=== PATIENT | female | born 1990 | race African-American/Black ===

== ENCOUNTER → 2016-11-08 | Outpatient (CLI) | payer OTHER ==
[2016-02-20 17:35] VITALS: BP 112/60
[~2016-11-08] MED LIST: NS 100 ML IV 100 ML IV ONE
--- NOTE | 2016-11-08 10:39 | CT ---
HISTORY: Abdominal pain and distention Study: CT abdomen and pelvis with IV and oral contrast Comparison: None Technique: Multiple axial images of the abdomen and pelvis were obtained from the lung bases to the pubic symph ysis with the administration of IV contrast. Sagittal and coronal reformations were provided. Findings: The visualized portions of the lung bases are unremarkable. The liver, spleen, pancreas, kidneys, a nd adrenal glands are unremarkable in their CT appearance. The gallbladder is unremarkable in its CT appearance. No significant mesenteric lymphadenopathy or stranding can be observed. No free fluid or free air is seen within the abdomen. The appendix is normal. The uterus is normal in size . The re is no abnormal adnexal mass. No bowel wall thickening or bowel dilatation is present. The colon is unremarkable. Specifically, there is no diverticulosis noted within the sigmoid colon. The urina ry bladder is grossly unremarkable. The bony structures are grossly intact. IMPRESSION: 1. Negative CT of the abdomen and pelvis. Reported By:
== END ==
LOC: RAD 08:32
PROVIDERS: ATTEND Physician Assistant Medical
DX: R14.0 Abdominal distension (gaseous) (principal)
CPT/HCPCS: 74177; A4222

== ENCOUNTER 2022-08-10 13:05 | Observation (INO) ==
--- NOTE | 2022-08-10 13:29 | DR.GENAD ---
HPI Time Seen Time Seen by Provider: 08/10/22 13:29 PCP Primary Care Physician: RACHAEL Complaint/Symptoms Chief Complaint:: PT. C/O SEVERE HEADACHE X 6 DAYS. PT. C/O RASH TO BODY. PT. WAS SEEN IN THE ER HERE AND WAS TOLD THERE WAS AN ABNORMAILTY ON HER SCAN AND ALSO IN [place] WHERE THEY STATED HER CT WAS NORMAL. PT. WAS SEEN AT THE ER IN [place] ON 08/08/22. Self Treatment fo Chief Complaint: TORADOL COVID-19 Coronavirus risk:travel/contact w/high risk person: No Has patient experienced Coronavirus symptoms: No Source History Provided: Patient Mode of Arrival Mode of Arrival: Ambulatory Timing Onset of Chief Complaint: 08/04/22 PMH PMH Past Medical History: No Past Surgical History: Yes Surgical History: and Tonsillectomy Family History History of Family Medical Conditions: Yes Family Medical History: Diabetes Mellitus and Hypertension Social History Does patient currently use any type of tobacco product: Yes Have you used tobacco products in the last 12 months: Yes Type of Tobacco Use: Cigarettes Does any household member use tobacco: No Alcohol Use: None Do you use any recreational Drugs:: No Lives With: Family Lives Where: Home Travel Risk Coronavirus risk:travel/contact w/high risk person: No Has patient experienced Coronavirus symptoms: No Infectious screening In the last 2 months have you had wt loss of >10#?: NO Have you had fever, night sweats or hemotysis?: No Have you traveled outside the country in the last 6 months?: No Isolation: Standard PE Vital Signs Vitals: Temperature 99.2 F Pulse Rate 95 Respiratory Rate 20 Blood Pressure [Left Arm] 115/59 Blood Pressure 102/67 O2 Sat by Pulse Oximetry 99 ROR Labs Reviewed Result Diagrams: 08/10/22 18:20 08/10/22 18:20 Laboratory: WBC 10.3 X10^3/uL (3.6-10.0) H 08/10/22 18:20 RBC 3.99 X10^6/uL (3.5-5.4) 08/10/22 18:20 Hgb 8.7 g/dL (12.0-16.0) L 08/10/22 18:20 Hct 27.3 % (36.0-47.0) L 08/10/22 18:20 MCV 68.4 fL (80.0-100.0) L 08/10/22 18:20 MCH 21.9 pg (27.0-34.0) L 08/10/22 18:20 MCHC 31.9 g/dL (33.0-35.0) L 08/10/22 18:20 RDW 20.3 % (11.6-16.5) H 08/10/22 18:20 Plt Count 417 X10^3/uL (150.0-450.0) 08/10/22 18:20 Plt Count Comment Adequate (ADEQUATE) 08/10/22 18:20 MPV 7.7 fL (7.4-11.0) 08/10/22 18:20 Neut % (Auto) 72.8 % (42.0-75.0) 08/10/22 18:20 Lymph % (Auto) 18.6 % (21.0-51.0) L 08/10/22 18:20 Sharp % (Auto) 6.9 % (0.0-13.0) 08/10/22 18:20 Eos % (Auto) 0.7 % (0.9-2.9) L 08/10/22 18:20 Baso % (Auto) 1.0 % (0.2-1.0) 08/10/22 18:20 Neut # (Auto) 7.5 x10^3/uL (2.2-4.8) H 08/10/22 18:20 Lymph # (Auto) 1.9 X10^3/uL (1.3-2.9) 08/10/22 18:20 Sharp # (Auto) 0.7 x10^3/uL (0.3-0.8) 08/10/22 18:20 Eos # (Auto) 0.1 x10^3/uL (0.0-0.2) 08/10/22 18:20 Baso # (Auto) 0.1 X10^3/uL (0.0-0.1) 08/10/22 18:20 Absolute Nucleated RBC 0.0 /100WBC 08/10/22 18:20 Plt Morphology Comment Normal (NORMAL) 08/10/22 18:20 RBC Morphology Abnormal (NORMAL) A 08/10/22 18:20 Anisocytosis 1+ A 08/10/22 18:20 Microcytosis 1+ A 08/10/22 18:20 Target Cells Present 08/10/22 18:20 ESR 130 MM/HOUR (0-20) H 08/10/22 18:20 Clot Appearance Negative 08/10/22 22:43 Sodium 135 mmol/L (136-145) L 08/10/22 18:20 Corrected Sodium TNP 08/10/22 18:20 Potassium 3.8 mmol/L (3.5-5.1) 08/10/22 18:20 Chloride 98 mmol/L (98-107) 08/10/22 18:20 Carbon Dioxide 30.7 mmol/L (21-32) 08/10/22 18:20 BUN 5 mg/dL (7-18) L 08/10/22 18:20 Creatinine 0.79 mg/dL (0.55-1.02) 08/10/22 18:20 Est GFR (MDRD) Af Amer > 60 (>60) 08/10/22 18:20 Est GFR (MDRD) Non-Af > 60 (>60) 08/10/22 18:20 Glucose 102 mg/dL (65-99) H 08/10/22 18:20 Calcium 8.6 mg/dL (8.5-10.1) 08/10/22 18:20 Corrected Calcium 10.0 mg/dL (8.5-10.1) 08/10/22 18:20 Iron 9 ug/dL (50-175) L 08/10/22 18:20 Transferrin 176 mg/dL (202-364) L 08/10/22 18:20 Ferritin 107 ng/mL (8-252) 08/10/22 18:20 Total Bilirubin 0.30 mg/dL (0.2-1.0) 08/10/22 18:20 AST 16 Units/L (15-37) 08/10/22 18:20 ALT 24 Units/L (12-78) 08/10/22 18:20 Alkaline Phosphatase 160 Units/L (46-116) H 08/10/22 18:20 C-Reactive Protein 150.10 mg/L (0-3.0) H 08/10/22 18:20 Total Protein 8.4 g/dL (6.4-8.2) H 08/10/22 18:20 Albumin 2.3 g/dL (3.4-5.0) L 08/10/22 18:20 Globulin 6.1 g/dL (2.5-4.5) H 08/10/22 18:20 Albumin/Globulin Ratio 0.4 Ratio (1.1-2.1) L 08/10/22 18:20 Vitamin B12 561 pg/mL (193-986) 08/10/22 18:20 Folate 14.7 ng/mL (>8.6) 08/10/22 18:20 CSF Appearance Clear 08/10/22 22:43 CSF Color Colorless 08/10/22 22:43 CSF WBC 3 Cubic mm 08/10/22 22:43 CSF RBC 113 Cubic mm 08/10/22 22:43 CSF Glucose 62 mg/dl (40-75) 08/10/22 22:43 CSF Total Protein 23.2 mg/dL (15-45) 08/10/22 22:43 Pleural Fluid Volume 6 mL 08/10/22 22:43 Opioid Opioid Risk Tool Age (Krunal box if 16-45): Yes History of Preadolescent Sexual Abuse: No Total: 1 Total Score Risk Category: Low Risk Copyright: [place] LEVINE predicting aberrant behaviors Discharge Plan Diagnosis Discharge Problem: Headache, Rash Discharge Plan Patient Disposition: 09 ADMITTED INPATIENT Condition: Stable Discharge Comment: RETURN TO ER IF WORSE. Orders to Discharge Patient Discharge Orders: Discharge (Routine); Ordered 08/10/22 Ordered By: MIR LEONARDO Transfer (Routine); Ordered 08/11/22 Ordered By: MIR LEONARDO
[2022-08-10] MEDS ORDERED: MORPHINE SULFATE INJ 4 MG ONE (13:46)
[2022-08-10] MEDS ORDERED: ZOFRAN INJ 4 MG VIAL ONE (13:46)
[2022-08-10] MEDS ORDERED: MORPHINE SULFATE INJ 4 MG IVP ONE (13:54)
[2022-08-10] MEDS ORDERED: ZOFRAN INJ 4 MG VIAL IVP ONE (13:54)
--- NOTE | 2022-08-10 15:09 | MRI ---
HISTORYSEVERE JOHNSNO, RASHSTUDYBRAIN W W/O CONCOMPARISONNone available.TECHNIQUEMRI images of the brain were obtained prior to and after the administration of intravenous contrast (18 mL MultiHance) utilizing a routine protocol.FINDINGSNo abnormal enhancement.No abnormal signal in the dural sinuses on the sagittal T1 sequence.Pituitary gland and stalk appear normal.No mass effect on the optic chiasm.No Chiari 1 malformation.Imaged portion of the spine and spinal cord appear grossly normal.No restricted diffusion.Flow voids appear normal on the T2 sequence.No intracranial, extra-axial, fluid collection.No mass, mass effect or midline shift.No abnormal areas of acute T2 signal in the brain parenchyma.No blooming artifact in the brain parenchyma.Sinuses are well aeratedMastoid air cells are well aerated.Globes and intra-orbital contents appear normal.No ventriculomegaly.IMPRESSIONNo acute intracranial abnormality identified.Electronically signed by: Bereket Boone (Aug 10, 2022 15:07:53)
[2022-08-10] MEDS ORDERED: FIORICET TAB PO ONE ×4 (17:56→21:03)
[2022-08-10 18:32] LABS: ERYTHROCYTE SEDIMENTATION RATE 130 MM/HOUR (0-20)
[2022-08-10 18:33] LABS: WHITE BLOOD COUNT 10.3 X10^3/uL (3.6-10.0)
[2022-08-10 18:37] LABS: BASOPHILS # (AUTO) 0.1 X10^3/uL (0.0-0.1); EOSINOPHILS # (AUTO) 0.1 x10^3/uL (0.0-0.2); EOSINOPHILS % (AUTO) 0.7 % (0.9-2.9); HEMATOCRIT 27.3 % (36.0-47.0); HEMOGLOBIN 8.7 g/dL (12.0-16.0); LYMPHOCYTES # (AUTO) 1.9 X10^3/uL (1.3-2.9); LYMPHOCYTES % (AUTO) 18.6 % (21.0-51.0); MEAN CORPUSCULAR HEMOGLOBIN 21.9 pg (27.0-34.0); MEAN CORPUSCULAR HGB CONC 31.9 g/dL (33.0-35.0); MEAN CORPUSCULAR VOLUME 68.4 fL (80.0-100.0); MEAN PLATELET VOLUME 7.7 fL (7.4-11.0); MONOCYTES # (AUTO) 0.7 x10^3/uL (0.3-0.8); MONOCYTES % (AUTO) 6.9 % (0.0-13.0); NEUTROPHILS # (AUTO) 7.5 x10^3/uL (2.2-4.8); NEUTROPHILS % (AUTO) 72.8 % (42.0-75.0); RED BLOOD COUNT 3.99 X10^6/uL (3.5-5.4); RED CELL DISTRIBUTION WIDTH 20.3 % (11.6-16.5)
[2022-08-10 18:44] LABS: ANISOCYTOSIS 1+; MICROCYTOSIS 1+; PLATELET MORPHOLOGY COMMENT NORMAL (NORMAL)
[2022-08-10 18:45] LABS: TARGET CELLS PRESENT
[2022-08-10 18:47] LABS: ALANINE AMINOTRANSFERASE 24 Units/L (12-78); ALBUMIN 2.3 g/dL (3.4-5.0); ALKALINE PHOSPHATASE 160 Units/L (46-116); ASPARTATE AMINO TRANSFERASE 16 Units/L (15-37); BLOOD UREA NITROGEN 5 mg/dL (7-18); CALCIUM 8.6 mg/dL (8.5-10.1); CARBON DIOXIDE 30.7 mmol/L (21-32); CHLORIDE 98 mmol/L (98-107); CREATININE 0.79 mg/dL (0.55-1.02); SODIUM 135 mmol/L (136-145); TOTAL PROTEIN 8.4 g/dL (6.4-8.2); eGFR NON BLACK RACES > 60 (>60)
[2022-08-10] MEDS ORDERED: XYLOCAINE 2 % (PLAIN) ONE (22:19)
[2022-08-10] MEDS ORDERED: XYLOCAINE 2 % (PLAIN) IJ PRN (22:50)
[2022-08-10] MEDS ORDERED: ROCEPHIN VIAL 1 GRAM 2 G in NS 100 ML IV 100 ML IV ONE (22:54)
[2022-08-10] MEDS ORDERED: ROCEPHIN VIAL 1 GRAM ONE (23:07)
[2022-08-10] MEDS ORDERED: NS 100 ML IV 100 ML ONE (23:08)
[2022-08-10] MEDS ORDERED: ROCEPHIN VIAL 2 GRAMS ONE (23:09)
[2022-08-10 23:10] LABS: TOT VOL 6 mL
[2022-08-10 23:11] LABS: APPEARANCE,CSF CLEAR; COLOR,CSF COLORLESS
[2022-08-10 23:13] LABS: GLUCOSE,CSF 62 mg/dl (40-75); TOTAL PROTEIN,CSF 23.2 mg/dL (15-45)
[2022-08-10] MEDS ORDERED: TORADOL 30 MG VIAL IVP ONE (23:17)
[2022-08-10] MEDS ORDERED: TORADOL 30 MG VIAL ONE (23:19)
[2022-08-10 23:22] LABS: WHITE BLOOD CELL,CSF 3 Cubic mm
[2022-08-11] MEDS: NS 1,000 ML IV 1,000 ML IV SCH ×4 (01:55→20:33)
[2022-08-11 01:57] VITALS: BMI 22.9
[2022-08-11 06:04] LABS: BASOPHILS # (AUTO) 0.1 X10^3/uL (0.0-0.1); BASOPHILS % (AUTO) 2.1 % (0.2-1.0); EOSINOPHILS # (AUTO) 0.1 x10^3/uL (0.0-0.2); EOSINOPHILS % (AUTO) 2.6 % (0.9-2.9); HEMATOCRIT 25.3 % (36.0-47.0); HEMOGLOBIN 8.1 g/dL (12.0-16.0); LYMPHOCYTES % (AUTO) 37.5 % (21.0-51.0); MEAN CORPUSCULAR HEMOGLOBIN 21.9 pg (27.0-34.0); MEAN CORPUSCULAR HGB CONC 31.8 g/dL (33.0-35.0); MEAN CORPUSCULAR VOLUME 68.8 fL (80.0-100.0); MONOCYTES # (AUTO) 0.7 x10^3/uL (0.3-0.8); MONOCYTES % (AUTO) 12.7 % (0.0-13.0); NEUTROPHILS # (AUTO) 2.4 x10^3/uL (2.2-4.8); NEUTROPHILS % (AUTO) 45.1 % (42.0-75.0); RED BLOOD COUNT 3.68 X10^6/uL (3.5-5.4); WHITE BLOOD COUNT 5.3 X10^3/uL (3.6-10.0)
[2022-08-11 06:25] LABS: ALANINE AMINOTRANSFERASE 16 Units/L (12-78); ALBUMIN 1.9 g/dL (3.4-5.0); ALKALINE PHOSPHATASE 137 Units/L (46-116); ASPARTATE AMINO TRANSFERASE 11 Units/L (15-37); BLOOD UREA NITROGEN 8 mg/dL (7-18); CALCIUM 8.1 mg/dL (8.5-10.1); CHLORIDE 102 mmol/L (98-107); COR CA(FOR HYPOALB) 9.8 mg/dL (8.5-10.1); CREATININE 0.75 mg/dL (0.55-1.02); SODIUM 138 mmol/L (136-145); TOTAL PROTEIN 7.4 g/dL (6.4-8.2); eGFR NON BLACK RACES > 60 (>60)
[2022-08-11] MEDS ORDERED: MICRO K EXTEN CAP 10 MEQ PO PRN (06:33)
[2022-08-11] MEDS ORDERED: KLOR-CON PO PRN (06:33)
[2022-08-11] MEDS ORDERED: POTASSIUM CHL 60 MEQ/NS 0.45% 500 ML IV PRN (06:33)
[2022-08-11] MEDS ORDERED: K-RIDER 10 MEQ/NS 100 ML 10 MEQ/100 ML BAG IV PRN (06:33)
[2022-08-11] MEDS ORDERED: POTASSIUM CHLORIDE LIQ 20 MEQ UDC PO PRN (06:33)
[2022-08-11] MEDS ORDERED: MAGNESIUM SULFATE 1 GRAM/100 mL PREMIX 1 G/100 ML BAG IV PRN (06:33)
[2022-08-11] MEDS ORDERED: POTASSIUM CHL 40 MEQ/NS 0.45% 500 ML IV PRN (06:33)
[2022-08-11 06:35] LABS: MICROCYTOSIS 1+; PLATELET MORPHOLOGY COMMENT NORMAL (NORMAL)
[2022-08-11 06:36] LABS: ANISOCYTOSIS SLIGHT; TARGET CELLS SLIGHT
[2022-08-11 09:15] LABS: SERUM PREGNANCY TEST, QUAL NEGATIVE <10 mIU/mL
[2022-08-11] MEDS: ROCEPHIN VIAL 1 GRAM 1 G in NS 100 ML IV 100 ML IV SCH ×2 (09:28→11:13)
[2022-08-11] MEDS: K-DUR TAB 20 MEQ PO PRN (09:29)
[2022-08-11] MEDS: TORADOL 30 MG VIAL IVP PRN ×3 (09:29→23:17)
[2022-08-11] MEDS ORDERED: COMPAZINE IV PRN ×2 (10:42)
[2022-08-11] MEDS ORDERED: NS IV PRN ×2 (10:42)
[2022-08-11] MEDS: NYSTATIN SUSP MT SCH ×4 (11:15→20:33)
[2022-08-12] MEDS: NS 1,000 ML IV 1,000 ML IV SCH ×4 (01:59→17:15)
[2022-08-12 06:28] LABS: BASOPHILS % (AUTO) 0.8 % (0.2-1.0); EOSINOPHILS # (AUTO) 0.1 x10^3/uL (0.0-0.2); EOSINOPHILS % (AUTO) 2.4 % (0.9-2.9); HEMATOCRIT 23.4 % (36.0-47.0); HEMOGLOBIN 7.5 g/dL (12.0-16.0); LYMPHOCYTES % (AUTO) 39.3 % (21.0-51.0); MEAN CORPUSCULAR HGB CONC 32.2 g/dL (33.0-35.0); MEAN CORPUSCULAR VOLUME 68.4 fL (80.0-100.0); MEAN PLATELET VOLUME 7.9 fL (7.4-11.0); MONOCYTES # (AUTO) 0.5 x10^3/uL (0.3-0.8); MONOCYTES % (AUTO) 10.7 % (0.0-13.0); NEUTROPHILS # (AUTO) 2.3 x10^3/uL (2.2-4.8); NEUTROPHILS % (AUTO) 46.8 % (42.0-75.0); RED BLOOD COUNT 3.42 X10^6/uL (3.5-5.4); RED CELL DISTRIBUTION WIDTH 20.2 % (11.6-16.5)
[2022-08-12 06:49] LABS: ALANINE AMINOTRANSFERASE 14 Units/L (12-78); ALBUMIN 1.8 g/dL (3.4-5.0); ALKALINE PHOSPHATASE 123 Units/L (46-116); ASPARTATE AMINO TRANSFERASE 12 Units/L (15-37); BLOOD UREA NITROGEN 6 mg/dL (7-18); CARBON DIOXIDE 29.1 mmol/L (21-32); CHLORIDE 107 mmol/L (98-107); COR CA(FOR HYPOALB) 9.8 mg/dL (8.5-10.1); CREATININE 0.67 mg/dL (0.55-1.02); SODIUM 140 mmol/L (136-145); TOTAL PROTEIN 6.8 g/dL (6.4-8.2); eGFR NON BLACK RACES > 60 (>60)
[2022-08-12 06:58] LABS: ANISOCYTOSIS 1+; HYPOCHROMASIA 1+; MICROCYTOSIS 1+; PLATELET MORPHOLOGY COMMENT NORMAL (NORMAL); TARGET CELLS PRESENT
--- NOTE | 2022-08-12 07:51 | DR.H&P ---
H&P History & Physical for Day of: H&P Date: 08/11/22 Chief Complaint Chief Complaint: Fever, chills Headache, Rash Allergies Allergies Allergy/AdvReac Type Severity Reaction Status Date / Time No Known Drug Allergies Allergy Verified 08/05/22 21:57 History of Present Illness History of Present Illness: Pt is a 32 year old female with no past medical history presenting with fever, chills, severe headache, and rash. She reports that symptoms initially started around 5 days ago with chills and headache. She then developed a rash on her face that has not spread to her trunk and extremities. There are blisters that have developed in these areas. She reports severe headache. No visual disturbances, nausea/vomiting. Labs/imaging: Wbc 5.3, Hgb 8.1, Plt 386, Na 138, K 3.5, Creatinine 0.75, Glucose 97, ESR 130, CRP 150, negative. Brain MRI no acute intracranial findings. COVID-19 negative. Patient had lumbar puncture with culture pending. Pt is currently on antibiotics Rocephin. Ordered UMA, RPR, HIV, HSV. [facility] teleconsulted. Possibility of viral illness, encephalitis, there is some concern for Monkeypox however patient has not traveled anywhere outside of [place]. AIT swab taken and results should be available over the weekend. Will order Toradol and compazine as needed for headache. Will await results and continue to closely mon itor and follow up labs. Time spent on clinical assessment, reviewing labs and imaging, decision making, and documentation greater than 45 minutes. Past Surgical History Surgical History: and Tonsillectomy Family History Family Medical History: Diabetes Mellitus and Hypertension Social History Does patient currently use any type of tobacco product: Yes Have you used tobacco products in the last 12 months: Yes Type of Tobacco Use: Cigarettes Does any household member use tobacco: No Alcohol Use: None Drug Use: None Medications Home Medications: No Known Drug Allergies Allergy (Verified 08/05/22 21:57) Labs Result Diagrams: 08/12/22 05:36 08/12/22 05:36 Labs: Laboratory WBC 5.3 X10^3/uL (3.6-10.0) 08/11/22 05:37 RBC 3.68 X10^6/uL (3.5-5.4) 08/11/22 05:37 Hgb 8.1 g/dL (12.0-16.0) L 08/11/22 05:37 Hct 25.3 % (36.0-47.0) L 08/11/22 05:37 MCV 68.8 fL (80.0-100.0) L 08/11/22 05:37 MCH 21.9 pg (27.0-34.0) L 08/11/22 05:37 MCHC 31.8 g/dL (33.0-35.0) L 08/11/22 05:37 RDW 20.0 % (11.6-16.5) H 08/11/22 05:37 Plt Count 386 X10^3/uL (150.0-450.0) 08/11/22 05:37 Plt Count Comment Adequate (ADEQUATE) 08/11/22 05:37 MPV 8.0 fL (7.4-11.0) 08/11/22 05:37 Neut % (Auto) 45.1 % (42.0-75.0) 08/11/22 05:37 Lymph % (Auto) 37.5 % (21.0-51.0) 08/11/22 05:37 Garza % (Auto) 12.7 % (0.0-13.0) 08/11/22 05:37 Eos % (Auto) 2.6 % (0.9-2.9) 08/11/22 05:37 Baso % (Auto) 2.1 % (0.2-1.0) H 08/11/22 05:37 Neut # (Auto) 2.4 x10^3/uL (2.2-4.8) 08/11/22 05:37 Lymph # (Auto) 2.0 X10^3/uL (1.3-2.9) 08/11/22 05:37 Garza # (Auto) 0.7 x10^3/uL (0.3-0.8) 08/11/22 05:37 Eos # (Auto) 0.1 x10^3/uL (0.0-0.2) 08/11/22 05:37 Baso # (Auto) 0.1 X10^3/uL (0.0-0.1) 08/11/22 05:37 Absolute Nucleated RBC 0.1 /100WBC 08/11/22 05:37 Plt Morphology Comment Normal (NORMAL) 08/11/22 05:37 RBC Morphology Abnormal (NORMAL) A 08/11/22 05:37 Anisocytosis Slight A 08/11/22 05:37 Microcytosis 1+ A 08/11/22 05:37 Target Cells Slight A 08/11/22 05:37 ESR 130 MM/HOUR (0-20) H 08/10/22 18:20 Clot Appearance Negative 08/10/22 22:43 Sodium 138 mmol/L (136-145) 08/11/22 05:37 Corrected Sodium TNP 08/11/22 05:37 Potassium 3.5 mmol/L (3.5-5.1) 08/11/22 05:37 Chloride 102 mmol/L (98-107) 08/11/22 05:37 Carbon Dioxide 30.0 mmol/L (21-32) 08/11/22 05:37 BUN 8 mg/dL (7-18) 08/11/22 05:37 Creatinine 0.75 mg/dL (0.55-1.02) 08/11/22 05:37 Est GFR (MDRD) Af Amer > 60 (>60) 08/11/22 05:37 Est GFR (MDRD) Non-Af > 60 (>60) 08/11/22 05:37 Glucose 97 mg/dL (65-99) 08/11/22 05:37 Calcium 8.1 mg/dL (8.5-10.1) L 08/11/22 05:37 Corrected Calcium 9.8 mg/dL (8.5-10.1) 08/11/22 05:37 Magnesium 2.1 mg/dL (2.0-2.9) 08/11/22 05:37 Iron 9 ug/dL (50-175) L 08/10/22 18:20 Transferrin 176 mg/dL (202-364) L 08/10/22 18:20 Ferritin 107 ng/mL (8-252) 08/10/22 18:20 Total Bilirubin 0.10 mg/dL (0.2-1.0) L 08/11/22 05:37 AST 11 Units/L (15-37) L 08/11/22 05:37 ALT 16 Units/L (12-78) 08/11/22 05:37 Alkaline Phosphatase 137 Units/L (46-116) H 08/11/22 05:37 C-Reactive Protein 150.10 mg/L (0-3.0) H 08/10/22 18:20 Total Protein 7.4 g/dL (6.4-8.2) 08/11/22 05:37 Albumin 1.9 g/dL (3.4-5.0) L 08/11/22 05:37 Globulin 5.5 g/dL (2.5-4.5) H 08/11/22 05:37 Albumin/Globulin Ratio 0.3 Ratio (1.1-2.1) L 08/11/22 05:37 Vitamin B12 561 pg/mL (193-986) 08/10/22 18:20 Folate 14.7 ng/mL (>8.6) 08/10/22 18:20 CSF Appearance Clear 08/10/22 22:43 CSF Color Colorless 08/10/22 22:43 CSF WBC 3 Cubic mm 08/10/22 22:43 CSF RBC 113 Cubic mm 08/10/22 22:43 CSF Glucose 62 mg/dl (40-75) 08/10/22 22:43 CSF Total Protein 23.2 mg/dL (15-45) 08/10/22 22:43 Pleural Fluid Volume 6 mL 08/10/22 22:43 Review of Systems Constitutional: Fever, Chills and Weakness Eyes: No Symptoms Reported ENT: No Symptoms Reported Respiratory: No Symptoms Reported Cardiovascular: No Symptoms Reported Gastrointestinal: No Symptoms Reported Genitourinary: No Symptoms Reported Musculoskeletal: No Symptoms Reported Skin: Rash Neurological: No Symptoms Reported Physical Exam Vital Signs: Temperature 97.8 F Pulse Rate [Brachial] 73 Pulse Rate [Right] 84 Pulse Rate 95 Respiratory Rate 20 Blood Pressure [Right Arm] 102/58 Blood Pressure [Left Arm] 101/55 Blood Pressure 102/67 O2 Sat by Pulse Oximetry 100 Oriented: Normal Eyes: Normal Ear: Normal Nose: Normal Throat: Normal Respiratory: Clear Throughout Cardiovascular: Normal : Normal Auscultation: Bowel Sounds: Normal Palpation: Normal Tenderness: Normal Skin: Other (circular lesions and pustular primary around face and extending to trunk and extremities) Musculoskeletal: Normal Psychiatric: Normal Mood Description: Calm and Appropriate Affect: Normal Speech Pattern: Clear and Appropriate Assessment/Plan (1) Encephalitis: Status: Acute (2) Rash: Status: Acute (3) Headache: Status: Acute Review H&P Reviewed: Yes Patient was examined?: Yes
[2022-08-12] MEDS: TORADOL 30 MG VIAL IVP PRN ×3 (08:06→23:58)
[2022-08-12] MEDS: NYSTATIN SUSP MT SCH ×4 (08:07→20:46)
[2022-08-12] MEDS: ROCEPHIN VIAL 1 GRAM 1 G in NS 100 ML IV 100 ML IV SCH (08:08)
[2022-08-12] MEDS ORDERED: [UNRECOGNIZED DRUG - OTHER] IV SCH (11:45)
[2022-08-12] MEDS ORDERED: NS 100 ML IV 100 ML with VENOFER 400 MG IV ONE ×2 (13:39)
[2022-08-12] MEDS ORDERED: NS IV ONE (14:54)
[2022-08-12] MEDS: NS IV SCH ×3 (15:17→20:46)
[2022-08-12] MEDS: PENICILLIN SODIUM IV SCH ×3 (15:17→20:46)
[2022-08-12] MEDS: K-DUR TAB 20 MEQ PO PRN (20:46)
[2022-08-13] MEDS: NS 1,000 ML IV 1,000 ML IV SCH ×2 (02:04→10:07)
[2022-08-13] MEDS: PENICILLIN SODIUM IV SCH ×2 (02:05→08:59)
[2022-08-13] MEDS: NS IV SCH ×2 (02:05→08:59)
[2022-08-13 06:18] LABS: BASOPHILS # (AUTO) 0.1 X10^3/uL (0.0-0.1); BASOPHILS % (AUTO) 1.3 % (0.2-1.0); EOSINOPHILS # (AUTO) 0.2 x10^3/uL (0.0-0.2); EOSINOPHILS % (AUTO) 3.3 % (0.9-2.9); HEMATOCRIT 24.6 % (36.0-47.0); HEMOGLOBIN 7.8 g/dL (12.0-16.0); LYMPHOCYTES # (AUTO) 2.1 X10^3/uL (1.3-2.9); LYMPHOCYTES % (AUTO) 35.3 % (21.0-51.0); MEAN CORPUSCULAR HEMOGLOBIN 21.9 pg (27.0-34.0); MEAN CORPUSCULAR HGB CONC 31.8 g/dL (33.0-35.0); MEAN CORPUSCULAR VOLUME 68.9 fL (80.0-100.0); MEAN PLATELET VOLUME 7.6 fL (7.4-11.0); MONOCYTES # (AUTO) 0.6 x10^3/uL (0.3-0.8); MONOCYTES % (AUTO) 10.2 % (0.0-13.0); NEUTROPHILS # (AUTO) 2.9 x10^3/uL (2.2-4.8); NEUTROPHILS % (AUTO) 49.9 % (42.0-75.0); RED BLOOD COUNT 3.58 X10^6/uL (3.5-5.4); RED CELL DISTRIBUTION WIDTH 20.1 % (11.6-16.5); WHITE BLOOD COUNT 5.9 X10^3/uL (3.6-10.0)
[2022-08-13 06:27] LABS: ALANINE AMINOTRANSFERASE 15 Units/L (12-78); ALBUMIN 1.7 g/dL (3.4-5.0); ALKALINE PHOSPHATASE 113 Units/L (46-116); ASPARTATE AMINO TRANSFERASE 16 Units/L (15-37); BLOOD UREA NITROGEN 6 mg/dL (7-18); CALCIUM 7.9 mg/dL (8.5-10.1); CARBON DIOXIDE 29.1 mmol/L (21-32); CHLORIDE 108 mmol/L (98-107); COR CA(FOR HYPOALB) 9.7 mg/dL (8.5-10.1); CREATININE 0.68 mg/dL (0.55-1.02); SODIUM 140 mmol/L (136-145); TOTAL PROTEIN 6.5 g/dL (6.4-8.2); eGFR NON BLACK RACES > 60 (>60)
[2022-08-13 06:38] LABS: ANISOCYTOSIS 1+; HYPOCHROMASIA 2+; MICROCYTOSIS 1+; PLATELET MORPHOLOGY COMMENT NORMAL (NORMAL)
[2022-08-13 06:39] LABS: TARGET CELLS PRESENT
[2022-08-13 07:56] VITALS: BP 92/51
[2022-08-13] MEDS: NYSTATIN SUSP MT SCH (08:59)
[2022-08-13] MEDS: ROCEPHIN VIAL 1 GRAM 1 G in NS 100 ML IV 100 ML IV SCH (08:59)
[2022-08-13] MEDS ORDERED: MILK OF MAGNESIA PO SCH (09:00)
[2022-08-13] MEDS: K-DUR TAB 20 MEQ PO PRN (09:19)
[2022-08-13] MEDS ORDERED: BICILLIN L-A IM ONE ×2 (10:45→12:42)
[2022-08-14 06:29] LABS: ANTI-NUCLEAR ANTIBODY TEST None Detected (None Detected)
== END 2022-08-13 13:20 | disposition home or self-care (01) ==
LOC: ER 13:05 → MED/SURG 13:05
PROVIDERS: ADMIT Family Medicine; ATTEND Family Medicine
DX: A36.9 Diphtheria, unspecified; G04.90 Encephalitis and encephalomyelitis, unspecified; R50.9 Fever, unspecified; B96.89 Other specified bacterial agents as the cause of diseases classified elsewhere; R51.9 Headache, unspecified; R79.82 Elevated C-reactive protein (CRP); A53.9 Syphilis, unspecified; Z20.822 Contact with and (suspected) exposure to COVID-19; R79.89 Other specified abnormal findings of blood chemistry; R21 Rash and other nonspecific skin eruption